=== PATIENT | male | born 1990 | race Caucasian/White ===

== ENCOUNTER 2020-11-20 11:05 | Emergency (ER) | payer OTHER ==
[2020-11-20 11:34] LABS: BILIRUBIN,URINE NEGATIVE (NEGATIVE); GLUCOSE, URINE (UA) NEGATIVE (NEGATIVE); KETONES,URINE (UA) NEGATIVE (NEGATIVE); LEUKOCYTE ESTERASE, URINE NEGATIVE (NEGATIVE); NITRITE,URINE NEGATIVE (NEGATIVE); OCCULT BLOOD,URINE NEGATIVE (NEGATIVE); PROTEIN,URINE NEGATIVE (NEGATIVE); UROBILINOGEN,URINE 0.2 (NORMAL) E.U./dL (NORMAL)
[2020-11-20 11:35] LABS: CLARITY,URINE CLEAR (CLEAR)
[2020-11-20] MEDS ORDERED: HYDROcod/ACETAM 5/325 MG TABLET PO STA (11:55)
[2020-11-20] MEDS ORDERED: IBUPROFEN 800 MG TABLET PO STA (11:55)
[2020-11-20] MEDS ORDERED: CYCLOBENZAPRINE 10 MG TABLET PO STA (11:55)
--- NOTE | 2020-11-20 11:58 | ED Physician Documentation ---
PD HPI BACK PAIN - Stated complaint Stated Complaint: BACK PX - Chief complaint Chief Complaint: Back Pain - History obtained from History obtained from: Patient - Additional information Additional information: Otherwise healthy 30-year-old gentleman has had intermittent back problems since an injury at the age of 15. Starting yesterday he was making motion to sit down on the couch and felt a sudden severe mid to low back pain with his legs giving out on him. Twice this is happened again always with motion generally reaching for something. Pain is mild to moderate at rest but severe with bending and twisting. No fevers, chills, nausea, saddle anesthesia, weakness numbness or tingling rest of the legs. No incontinence. Review of Systems Constitutional: denies: Fever, Chills Cardiac: denies: Chest pain / pressure, Palpitations Respiratory: denies: Dyspnea, Cough PD PAST MEDICAL HISTORY - Past Medical History Musculoskeletal: Chronic back pain - Past Surgical History Past Surgical History: No - Present Medications Home Medications: Ambulatory Orders Medication Instructions Recorded Confirmed Cyclobenzaprine [Flexeril] 10 mg PO TID PRN #20 tablet 10/06/16 HYDROcod/ACETAM 5/325 [[place] 5/325] 1 - 2 ea PO Q6H PRN #15 tablet 10/06/16 Cyclobenzaprine [Flexeril] 10 mg PO TID PRN #14 tablet 11/20/20 HYDROcod/ACETAM 5/325 [[place] 5/325] 1 - 2 tab PO Q6H PRN #10 tablet 11/20/20 Ibuprofen [Motrin] 800 mg PO Q8H PRN #20 tablet 11/20/20 - Allergies Allergies/Adverse Reactions: Allergies Allergy/AdvReac Type Severity Reaction Status Date / Time No Known Drug Allergies Allergy Verified 11/20/20 11:14 - Social History Does the pt smoke?: Yes Smoking Status: Current every day smoker Does the pt drink ETOH?: Yes Does the pt have substance abuse?: No - Immunizations Immunizations are current?: Yes PD ED PE NORMAL - Vitals Vital signs reviewed: Yes - General General: Alert and oriented X 3, No acute distress - HEENT HEENT: PERRL, EOMI - Neck Neck: Supple, no meningeal sign, No bony TTP - Extremities Extremities: Other (Muscular tenderness on either side of the upper lumbar spine, no skin changes. Decent range of motion but winces when sitting up.) - Neuro Neuro: Alert and oriented X 3, No motor deficit, No sensory deficit, Normal speech, Other (The patient has equal and normal Achilles and patellar reflexes bilaterally. Normal sensation in all areas of the legs. Patient denies saddle anesthesia. Normal strength in flexion-extension at the ankles, knees, and flexion of the hips.) Results - Vitals Vitals: Vital Signs - 24 hr 11/20/20 11:09 Temperature 36.1 C L Heart Rate 68 Respiratory 14 Rate Blood Pressure 117/77 O2 Saturation 100 Oxygen O2 Source Room air - Labs Labs: Laboratory Tests 11/20/20 11:26 Urine Color YELLOW Urine Clarity CLEAR Urine pH 6.0 Ur Specific [place] >=1.030 H Urine Protein NEGATIVE Urine Glucose (UA) NEGATIVE Urine Ketones NEGATIVE Urine Occult Blood NEGATIVE Urine Nitrite NEGATIVE Urine Bilirubin NEGATIVE Urine Urobilinogen 0.2 (NORMAL) Ur Leukocyte Esterase NEGATIVE Ur Microscopic Review NOT INDICATED Urine Culture Comments NOT INDICATED PD MEDICAL DECISION MAKING - ED course ED course: This patient has seemingly uncomplicated musculoskeletal back pain. The patient has no "red flags." Specifically denies IV drug use, fevers, incontinence, saddle anesthesia. Spinal epidural abscess was considered, given that the patient has no fever, is not diabetic, has no spinal tenderness, does not use IV drugs, and has no bilateral neurologic symptoms, the diagnosis of spinal epidural abscess is considered exceedingly unlikely. Departure - Departure Disposition: 01 Home, Self Care Clinical Impression: Back pain Condition: Good Record reviewed to determine appropriate education?: Yes Instructions: ED Neck Back Pain General Prescriptions: Cyclobenzaprine [Flexeril] 10 mg PO TID PRN #14 tablet PRN Reason: Spasms Ibuprofen [Motrin] 800 mg PO Q8H PRN #20 tablet PRN Reason: PAIN &/OR FEVER HYDROcod/ACETAM 5/325 [[place] 5/325] 1 - 2 tab PO Q6H PRN #10 tablet PRN Reason: Pain Comments: Return if worsening or if new symptoms develop. Be especially watchful for fevers, incontinence of bowel or bladder, numbness around her private parts. [place] Forms: Activity restrictions
[2020-11-20 12:14] VITALS: BP 114/66
== END 2020-11-20 12:16 | disposition home or self-care (01) ==
LOC: ED 11:05
DX: M54.9 Dorsalgia, unspecified (principal); F17.200 Nicotine dependence, unspecified, uncomplicated
CPT/HCPCS: 81003; 99283; A9270; 80053; 81001; 83690; 85025; 87086

== ENCOUNTER 2023-05-14 18:44 | Emergency (ER) | payer OTHER ==
[2023-05-14 18:59] VITALS: BP 126/77
--- NOTE | 2023-05-14 19:24 | ED Physician Documentation ---
History of Present Illness - Stated complaint Stated Complaint: FINGER INJURY - Chief complaint Chief Complaint: Laceration - Additonal information Additional information: 32-year-old male who presents emergency department for evaluation of acute right index finger injury sustained when using a mandolin slicer to slice carrots. Tetanus is up-to-date. Patient is left-hand dominant. He has a large abrasion which he has had difficult time getting hemostasis achieved. Review of Systems Skin: reports: Laceration (s) PD PAST MEDICAL HISTORY - Past Medical History Musculoskeletal: Chronic back pain - Past Surgical History Past Surgical History: No - Present Medications Home Medications: Ambulatory Orders Medication Instructions Recorded Confirmed No Known Home Medications 05/14/23 05/14/23 - Allergies Allergies/Adverse Reactions: Allergies Allergy/AdvReac Type Severity Reaction Status Date / Time No Known Drug Allergies Allergy Verified 05/14/23 18:51 - Social History Does the pt smoke?: Yes Smoking Status: Current every day smoker Does the pt drink ETOH?: Yes Does the pt have substance abuse?: No - Immunizations Immunizations are current?: Yes PD ED PE EXPANDED - General General: Alert, No acute distress - Extremities Extremities: Right finger(s) (Deep avulsion to the right distal index fingertip with active capillary bleeding noted.) Results - Vitals Vitals: Vital Signs - 24 hr 05/14/23 18:47 Temperature 36.5 C Heart Rate 88 Respiratory 18 Rate Blood Pressure 126/77 O2 Saturation 100 Oxygen O2 Source Room air Procedures - General procedure General procedure: Right index finger was anesthetized with 1% lidocaine. Following this the wound was thoroughly washed and Surgicel was applied to the wound bed. I observe the wound for a few minutes and noted that the bleeding appeared to be resolving with the Surgicel. It was then wrapped in gauze and [place]. PD Medical Decision Making - ED course Complexity details: reviewed results, re-evaluated patient, d/w patient ED course: 32-year-old male who is left-hand dominant presents with a right index finger tip avulsion sustained when using a mandolin slicer. This was not amenable to primary closure. We were able to achieve hemostasis using a small amount of Surgicel. Patient's tetanus is up-to-date. I discussed the usual routine care measures as well as emergent return precautions. Departure - Departure Disposition: 01 Home, Self Care Clinical Impression: Avulsion of skin of finger Qualifiers: Encounter type: initial encounter Qualified Code(s): S61.209A - Unspecified open wound of unspecified finger without damage to nail, initial encounter Condition: Stable Record reviewed to determine appropriate education?: Yes Comments: Jose Francisco you sustained a fingertip avulsion when using the mandolin slicer at home. This basically means that you peeled many layers of skin away at the same time. We have placed a product on your wound called Surgicel which will help clot to form at the wound bed. This should remain in place until it naturally falls away over the next several days. When it does please apply a generous amount of antibiotic ointment such as bacitracin or triple antibiotic to the fingertip. A simple bandage should be enough. I would expect that this takes 1 to 2 weeks for to properly heal. Please keep your finger dry. Return to the emergency department if you have any concerns of infection such as finger redness, swelling, increased pain or milky drainage.
== END 2023-05-14 19:35 | disposition home or self-care (01) ==
LOC: ED 18:44
DX: S61.200A Unspecified open wound of right index finger without damage to nail, initial encounter (principal); W27.8XXA Contact with other nonpowered hand tool, initial encounter; F17.200 Nicotine dependence, unspecified, uncomplicated
CPT/HCPCS: 99281; 99283

== ENCOUNTER 2023-11-13 08:34 | Emergency (ER) | payer OTHER ==
[2023-11-13 08:55] VITALS: O2SAT 98
[2023-11-13 09:34] LABS: RAPID STREP SCREEN Negative (Negative)
[2023-11-13 10:14] LABS: B. PARAPERTUSSIS- RESP PCR PAN NOT DETECTED; B. PERTUSSIS- RESP PCR PANEL NOT DETECTED; C. PNEUMONIAE- RESP PCR PANEL NOT DETECTED; CORONAVIRUS 229E-RESP PCR NOT DETECTED; CORONAVIRUS HKU1-RESP PCR NOT DETECTED; CORONAVIRUS NL63-RESP PCR NOT DETECTED; CORONAVIRUS OC43-RESP PCR NOT DETECTED; HUMAN METAPNEUMOVIRUS NOT DETECTED; INFLUENZA A H1 2009- RESP PCR DETECTED; INFLUENZA B - RESP PCR PANEL NOT DETECTED; M. PNEUMONIAE- RESP PCR PANEL NOT DETECTED; PARAINFLUENZA VIRUS 1 NOT DETECTED; PARAINFLUENZA VIRUS 2 NOT DETECTED; PARAINFLUENZA VIRUS 3 NOT DETECTED; PARAINFLUENZA VIRUS 4 NOT DETECTED; RHINOVIRUS/ENTEROVIRUS NOT DETECTED; RSV- RESP PCR PANEL NOT DETECTED; SARS-CoV-2 -RESP PCR PANEL NOT DETECTED
--- NOTE | 2023-11-13 10:48 | ED Physician Documentation ---
PD HPI URI - Stated complaint Stated Complaint: FEVER,CHILLS,V BLOOD - Chief complaint Chief Complaint: General - History obtained from History obtained from: Patient - History of Present Illness Timing - onset: How many days ago (5) Timing duration: Days (5) Timing details: Gradual onset, Still present (worsening general symptoms and having increased sore throat. with similar symptoms a couple days sooner in progression and she testes positive for strep and flu.) Associated symptoms: Fever, Nasal congestion, Sore throat, Swollen nodes, Dry cough, Dyspnea Contributing factors: Sick contact ( tihe influenza A and strep.). No: Immunocompromised Improves by: No: Medication (OTC meds not very effective except TYlenol for fevers.) Similar symptoms before: Has not had sx before Recently seen: Not recently seen PD PAST MEDICAL HISTORY - Past Medical History Cardiovascular: None Respiratory: None Endocrine/Autoimmune: None Psych: Depression, Anxiety Musculoskeletal: Chronic back pain - Past Surgical History Past Surgical History: No - Present Medications Home Medications: Ambulatory Orders Medication Instructions Recorded Confirmed Albuterol Sulf [Ventolin Hfa 1 - 2 puffs INH Q4HR PRN #1 each 11/13/23 Inhaler] Amoxicillin 500 mg PO TID #21 cap 11/13/23 dexAMETHasone [Decadron] 4 mg PO DAILY #5 tablet 11/13/23 - Allergies Allergies/Adverse Reactions: Allergies Allergy/AdvReac Type Severity Reaction Status Date / Time No Known Drug Allergies Allergy Verified 05/14/23 18:51 - Social History Does the pt smoke?: Yes Smoking Status: Current every day smoker Does the pt drink ETOH?: Yes Does the pt have substance abuse?: No - Immunizations Immunizations are current?: Yes PD ED PE NORMAL - Vitals Vital signs reviewed: Yes - General General: Alert and oriented X 3, No acute distress, Well developed/nourished - HEENT HEENT: No: Pharynx benign (redness without focal swelling. No exudate. Anterior nodes present and tender in neck. ) - Neck Neck: Supple, no meningeal sign - Cardiac Cardiac: RRR, No murmur - Respiratory Respiratory: No respiratory distress, Clear bilaterally - Abdomen Abdomen: Soft, Non tender - Derm Derm: Normal color, Warm and dry - Neuro Neuro: Alert and oriented X 3, No motor deficit, Normal speech Results - Vitals Vitals: Oxygen O2 Source Room air - Labs Labs: Microbiology 11/13/23 08:58 Group A Strep Throat Culture - Final Throat MIXED OROPHARYNGEAL TRAY PRESENT. NO BETA STREP PRESENT IN CULTURE. Laboratory Tests 11/13/23 11/13/23 08:58 08:58 Nasal Adenovirus (PCR) NOT DETECTED Nasal B. parapertussis DNA (PCR) NOT DETECTED Nasal Coronavir 229E PCR NOT DETECTED Nasal Coronavir HKU1 PCR NOT DETECTED Nasal Coronavir NL63 PCR NOT DETECTED Nasal Coronavir OC43 PCR NOT DETECTED Nasal Enterovir/Rhinovir PCR NOT DETECTED Nasal Influ A H1 2009 PCR DETECTED A Nasal Influenza B PCR NOT DETECTED Nasal Parainfluen 1 PCR NOT DETECTED Nasal Parainfluen 2 PCR NOT DETECTED Nasal Parainfluen 3 PCR NOT DETECTED Nasal Parainfluen 4 PCR NOT DETECTED Nasal RSV (PCR) NOT DETECTED Nasal B.pertussis DNA PCR NOT DETECTED Nasal C.pneumoniae (PCR) NOT DETECTED Devyn Human Metapneumo PCR NOT DETECTED Nasal M.pneumoniae (PCR) NOT DETECTED Nasal SARS-CoV-2 (PCR) NOT DETECTED Group A Strep Rapid Negative PD Medical Decision Making - ED course Complexity details: reviewed results (viral PCR and rapid strep by nursing triage. Flu A psotive as expected with currently sick with it. Rapid strep negative but again he is in contact with who is positive strep and pt with increasing sore throat. I would treat empirically. ), considered differential, d/w patient Departure - Departure Disposition: 01 Home, Self Care Clinical Impression: Influenza A, Acute sore throat Condition: Stable Record reviewed to determine appropriate education?: Yes Instructions: ED Flu Follow-Up: JACKELINE PRETTY MD [Primary Care Provider] - Prescriptions: Albuterol Sulf [Ventolin Hfa Inhaler] 1 - 2 puffs INH Q4HR PRN #1 each PRN Reason: Shortness Of Air/Wheezing Amoxicillin 500 mg PO TID #21 cap dexAMETHasone [Decadron] 4 mg PO DAILY #5 tablet Comments: Your respiratory viral panel test is positive for influenza A. Your strep test is negative but given your having flu and strep, I would be inclined to think your test is a false negative or may be still early. I think treating you for strep is appropriate. Otherwise we can treat the cough and wheezing part of the flu with albuterol inhaler 2 to 3 puffs 4 times daily for the next several days to a week. Also Decadron steroid for inflammation of the bronchioles. Stay well-hydrated. Tylenol every 4-6 hours if needed for pains or fevers. I would anticipate improvement over the next few days. I sent your prescriptions to your preferred pharmacy, [facility] in [place]. Off work today and tomorrow. Forms: PCP List, Activity restrictions Discharge Date/Time: 11/13/23 12:03
[2023-11-13] MEDS ORDERED: ALBUTEROL 1 PUFF INH STA (11:08)
[2023-11-13] MEDS ORDERED: AMOXICILLIN 250 MG CAPSULE PO STA (11:08)
[2023-11-13] MEDS ORDERED: dexAMETHasone 4 MG TABLET PO STA (11:08)
[2023-11-13 12:09] VITALS: BP 130/77
== END 2023-11-13 12:03 | disposition home or self-care (01) ==
LOC: ED 08:34
DX: J11.1 Influenza due to unidentified influenza virus with other respiratory manifestations (principal); R07.0 Pain in throat; Z11.52 Encounter for screening for COVID-19; F17.200 Nicotine dependence, unspecified, uncomplicated
CPT/HCPCS: 87070; 87430; 87633; 94640; 94664; 99283; A9270; J8540

== ENCOUNTER 2024-04-13 19:14 | Emergency (ER) | payer OTHER ==
[2024-04-13 19:52] LABS: BASOPHILS % (AUTO) 0.3 %; EOSINOPHILS # (AUTO) 0.3 10^3/uL (0.0-0.7); EOSINOPHILS % (AUTO) 3.3 %; HCT - HEMATOCRIT 44.8 % (42.0-52.0); LYMPHOCYTES # (AUTO) 1.4 10^3/uL (1.5-3.5); LYMPHOCYTES % (AUTO) 18.2 %; MEAN CORPUSCULAR HEMOGLOBIN 29.9 pg (27.0-31.0); MEAN CORPUSCULAR HGB CONC 33.5 g/dL (32.0-36.0); MEAN CORPUSCULAR VOLUME 89.2 fL (80.0-94.0); MEAN PLATELET VOLUME 10.3 fL (7.4-11.4); MONOCYTES # (AUTO) 0.7 10^3/uL (0.0-1.0); MONOCYTES % (AUTO) 8.4 %; NEUTROPHILS # (AUTO) 5.4 10^3/uL (1.5-6.6); NEUTROPHILS % (AUTO) 69.3 %; PLT - PLATELET COUNT 260 10^3/uL (130-450); RED BLOOD COUNT 5.02 10^6/uL (4.70-6.10); RED CELL DISTRIBUTION WIDTH 12.4 % (12.0-15.0); WHITE BLOOD COUNT 7.8 x10^3/uL (4.8-10.8)
[2024-04-13 20:05] LABS: ALBUMIN 4.5 g/dL (3.2-5.5); ALBUMIN/GLOBULIN RATIO 1.6 (1.0-2.2); BILIRUBIN,TOTAL 0.8 mg/dL (0.2-1.0); CALCIUM 9.6 mg/dL (8.5-10.3); CREATININE 0.9 mg/dL (0.6-1.3); POTASSIUM 3.6 mmol/L (3.5-4.5); TOTAL PROTEIN 7.4 g/dL (6.4-8.9)
[2024-04-13] MEDS: SODIUM CHLORIDE 0.9% 1,000 ML IV STA (21:52)
[2024-04-13] MEDS: ONDANSETRON 4 MG/2 ML VIAL IVP STA (21:52)
--- NOTE | 2024-04-13 22:47 | ED Physician Documentation ---
PD HPI NVD - Stated complaint Stated Complaint: VOMIT/DIARRHEA - Chief complaint Chief Complaint: General - History obtained from History obtained from: Patient - History of Present Illness Timing - onset: Today Timing - duration: Days (1) Pain level max: 3 Pain level now: 3 Associated symptoms: Abdominal pain (crampy, diffuse). No: Fever, Chest pain, Hematemesis, Melena, Hematochezia Contributing factors: No: Sick contact, Bad food, Travel, Recent antibiotics, Alcohol use, Anticoagulated, Diabetes Improved by: Vomiting Worsened by: Eating Recently seen: Not recently seen - Additonal information Additional information: Patient is a 33-year-old male who presents to the emergency department with vomiting and diarrhea. He states that vomiting occurred first, vomited several times this morning, now has nausea but no further vomiting. Has had diarrhea 10-11 times today. Nonbloody. No recent travel. No recent antibiotics. No fevers. No chills. No sick contacts that he is aware of. No camping or drinking from streams. Review of Systems Constitutional: denies: Fever, Chills Skin: denies: Rash Musculoskeletal: denies: Neck pain, Back pain Neurologic: denies: Headache PD PAST MEDICAL HISTORY - Past Medical History Cardiovascular: None Respiratory: None Endocrine/Autoimmune: None Psych: Depression, Anxiety Musculoskeletal: Chronic back pain - Past Surgical History Past Surgical History: No - Present Medications Home Medications: Ambulatory Orders Medication Instructions Recorded Confirmed Ondansetron Odt [Zofran] 4 mg TL Q6H PRN #10 tablet 04/13/24 - Allergies Allergies/Adverse Reactions: Allergies Allergy/AdvReac Type Severity Reaction Status Date / Time No Known Drug Allergies Allergy Verified 04/13/24 19:34 - Social History Does the pt smoke?: Yes Smoking Status: Current every day smoker Does the pt drink ETOH?: Yes Does the pt have substance abuse?: No - Immunizations Immunizations are current?: Yes PD ED PE NORMAL - Vitals Vital signs reviewed: Yes - General General: Alert and oriented X 3, No acute distress - HEENT HEENT: Moist mucous membranes - Neck Neck: Supple, no meningeal sign - Cardiac Cardiac: RRR, Strong equal pulses - Respiratory Respiratory: No respiratory distress, Clear bilaterally - Abdomen Abdomen: Soft, Non tender, Non distended - Derm Derm: Warm and dry - Extremities Extremities: No edema - Neuro Neuro: Alert and oriented X 3 - Psych Psych: Normal mood, Normal affect Results - Vitals Vitals: Vital Signs - 24 hr 04/13/24 04/13/24 04/13/24 19:28 21:24 22:52 Temperature 36.5 C Heart Rate 83 70 74 Respiratory 16 16 16 Rate Blood Pressure 117/62 124/79 122/76 O2 Saturation 99 99 98 Oxygen O2 Source Room air - Labs Labs: Laboratory Tests 04/13/24 04/13/24 19:43 19:43 WBC 7.8 RBC 5.02 Hgb 15.0 Hct 44.8 MCV 89.2 MCH 29.9 MCHC 33.5 RDW 12.4 Plt Count 260 MPV 10.3 Neut # (Auto) 5.4 Lymph # (Auto) 1.4 L [place] # (Auto) 0.7 Eos # (Auto) 0.3 Baso # (Auto) 0.0 Absolute Nucleated RBC 0.00 Nucleated RBC % 0.0 Sodium 136 Potassium 3.6 Chloride 99 L Carbon Dioxide 32 Anion Gap 5.0 L BUN 20 Creatinine 0.9 Estimated GFR (MDRD) 97 Glucose 100 Calcium 9.6 Total Bilirubin 0.8 AST 17 ALT 18 Alkaline Phosphatase 63 Total Protein 7.4 Albumin 4.5 Globulin 2.9 Albumin/Globulin Ratio 1.6 Lipase 18 PD Medical Decision Making - ED course Complexity details: reviewed results, re-evaluated patient, considered differential, d/w patient ED course: 33-year-old male with what appears to be a viral gastroenteritis. Patient is well-appearing, nontoxic. Afebrile. Abdomen is soft, nontender nondistended on serial exam. Given IV fluids and IV Zofran. No significant lab abnormalities. No indication for further workup at this time. Tolerating p.o. without difficulty. Patient counseled regarding signs and symptoms for which I believe and urgent re-evaluation would be necessary. Patient with good understanding of and agreement to plan and is comfortable going home at this time This document was made in part using voice recognition software. While efforts are made to proofread this document, sound alike and grammatical errors may occur. Departure - Departure Disposition: 01 Home, Self Care Clinical Impression: Viral gastroenteritis Condition: Good Instructions: ED Gastroenteritis Viral Follow-Up: JACKELINE PRETTY MD [Primary Care Provider] - Prescriptions: Ondansetron Odt [Zofran] 4 mg TL Q6H PRN #10 tablet PRN Reason: Nausea / Vomiting Comments: Your prescription was sent to [facility] in [place]. Please drink plenty of fluids and rest. Please return if you worsen. This appears to be a viral illness and should resolve on its own. The diarrhea can last up to 3 to 5 days. Usually the vomiting is the worst in the first 6 to 12 hours. Forms: PCP List, Activity restrictions Discharge Date/Time: 04/13/24 23:03
[2024-04-13 22:54] VITALS: BP 122/76; O2SAT 98
== END 2024-04-13 23:03 | disposition home or self-care (01) ==
LOC: ED 19:14
DX: A08.4 Viral intestinal infection, unspecified (principal); F17.200 Nicotine dependence, unspecified, uncomplicated
CPT/HCPCS: 36415; 80053; 83690; 85025; 96374; 99283